=== PATIENT | female | born 1945 | race Caucasian/White ===

== ENCOUNTER → 2018-09-07 | Day surgery (SDC) | payer MEDICARE, BC ==
[~2018-09-07] MED LIST: Lactated Ringers 1,000 ML IV SCH; Propofol 200 MG/20 ML SDV IV ONE
[2018-09-07 10:37] VITALS: BP 135/61; PULSE 62
--- NOTE | 2018-09-07 11:51 | OR ---
DATE OF OPERATION: 09/07/2018 PREOPERATIVE DIAGNOSIS: RIGHT LOWER QUADRANT PAIN, HISTORY OF CARCINOID TUMOR. POSTOPERATIVE DIAGNOSIS: RIGHT LOWER QUADRANT PAIN, HISTORY OF CARCINOID TUMOR. SURGEON: Rio Mares MD PROCEDURE: FULL-LENGTH COLONOSCOPY WITH BIOPSY X2. ANESTHESIA: MAC via [employer]AIR. COMPLICATIONS: None. SPECIMEN: None. FINDINGS: 1. Essentially normal diagnostic colonoscopy. 2. Biopsy x2, right colon for minimal colitis. RECOMMENDATIONS: Routine colonoscopy on an as needed basis only. INDICATIONS: The patient has a history of carcinoid tumor with prior peritoneal seeding. She had been having some right lower quadrant pain. She had a colonoscopy 2 years ago which was normal. Her oncologist recommended a followup. DESCRIPTION OF PROCEDURE: The patient was prepped and draped, placed in the left lateral decubitus position. A lubricated Olympus colonoscope was inserted and ultimately advanced to the cecum. The patient was extremely tortuous and was a slight challenge, but we were able to get into the cecal pouch, visualize the entire area. The backside of the ileocecal valve was a little inflammatory, we did do a biopsy of that. There was a small area of thickening of the proximal ascending colon also biopsied, but the rest of the ascending, transverse, and descending colons were completely benign. The sigmoid colon had no signs of any polyps, mass, ulceration, or bleeding sites. No vascular abnormalities or signs of colitis. No significant diverticula. The rectal vault was benign. Retroflexion of the scope in the rectum showed no anal lesions. Air was suctioned, scope removed without complication. NADIR/EDSON /[id number]
== END ==
LOC: CC.SDS 07:53
PROVIDERS: ATTEND Family Medicine
DX: R10.31 Right lower quadrant pain (principal); K63.89 Other specified diseases of intestine; K21.9 Gastro-esophageal reflux disease without esophagitis; I10 Essential (primary) hypertension; E78.5 Hyperlipidemia, unspecified; E53.8 Deficiency of other specified B group vitamins; E31.20 Multiple endocrine neoplasia [MEN] syndrome, unspecified; F41.9 Anxiety disorder, unspecified; F32.9 Major depressive disorder, single episode, unspecified; F17.210 Nicotine dependence, cigarettes, uncomplicated; G25.81 Restless legs syndrome; G47.30 Sleep apnea, unspecified; Z88.8 Allergy status to other drugs, medicaments and biological substances; Z88.6 Allergy status to analgesic agent; Z90.49 Acquired absence of other specified parts of digestive tract; Z85.030 Personal history of malignant carcinoid tumor of large intestine; Z79.899 Other long term (current) drug therapy
CPT/HCPCS: 45380; J2704; J7120; 00812; 88305